=== PATIENT | male | born 2000 | race Caucasian/White ===

== ENCOUNTER 2020-10-28 12:08 | Emergency (ER) | payer MEDICAID, SELFPAY ==
--- NOTE | ~2020-10-28 | XR_ITS ---
XR ankle RT min 3V 10/28/2020 12:49 Indication: Right ankle pain after injury Procedure: 4 views right ankle Comparison: No prior studies for comparison. Findings: There are degenerative changes of the right ankle. Small loose body inferior to the fibula. No acute fracture is identified. Moderate lateral soft tissue swelling. Ankle mortise intact. No for eign bodies. Impression: 1: No acute fracture. Reviewed, dictated and finalized at location B. IATRIC THORACIC PHYSICIAN Impression: 1: No acute fracture.
[2020-10-28 12:18] VITALS: BP 159/106; PULSE 88; RESP 18; TEMP 37; O2SAT 100
--- NOTE | 2020-10-28 12:22 | PC.NURSE ---
patient brought back to ED room 18 for triage. here via wheelchair with c/o right foot pain after he slipped on the ice this am. alert. oriented. advised to remove his shoes for exam. xray ordered. mother in room.
--- NOTE | 2020-10-28 12:23 | ED.LOWEXIN ---
HPI - Extremity Injury (Lower) General Chief Complaint: Extremity Injury, Lower Stated Complaint: rolled ankle Time Seen by Provider: 10/28/20 12:17 Source: patient Mode of arrival: wheelchair Limitations: no limitations History of Present Illness HPI Narrative: This is a 20-year-old male that presents the emergency department for right ankle injury sustained just prior to arrival. Reports he was stepping out of his truck and slipped. Reports rolling the right ankle. Denies hitting his head or loss of consciousness. Reports since he has had swelling and pain in the ankle. Reports decreased range of motion due to pain. Denies other injuries, or numbness. Related Data Allergies Allergy/AdvReac Type Severity Reaction Status Date / Time No Known Allergies Allergy Mild Unverified 11/30/11 21:47 Review of Systems Review of Systems: Narrative: CONSTITUTIONAL: Denies fever MUSCULOSKELETAL: Reports joint pain, and myalgia. NEUROLOGIC: Denies numbness All systems reviewed & are unremarkable except as noted in HPI and below PMFSH Past Medical History Medical History (Updated 10/28/20 @ 13:49 by Fatou Teague PA-C) History of hypertension Social History Social History (Updated 10/28/20 @ 12:25 by Fatou Teague PA-C) Smoking status: Current every day smoker Exam Narrative: Exam Narrative: GENERAL: Well-appearing, obese, and in no acute distress. HEAD: Normocephalic, atraumatic. EYES: EOMI. EXTREMITIES: Normal range of motion, except decreased range of motion of the right ankle due to pain. Moderate edema about the right lateral malleoli, tender to palpation. Normal DP pulses. Normal sensation SKIN: Warm, dry, no rash. NEURO: No focal deficits. Alert and oriented x3. PSYCH: Normal mood and affect Course Vital Signs Vital signs: Vital Signs Temperature 98.6 F 10/28/20 12:18 Pulse Rate 88 10/28/20 12:18 Respiratory Rate 18 10/28/20 12:18 Blood Pressure 159/106 H 10/28/20 12:18 Pulse Oximetry 100 10/28/20 12:18 Temperature 98.6 F 10/28/20 12:18 Pulse Rate 88 10/28/20 12:18 Respiratory Rate 18 10/28/20 12:18 Blood Pressure 159/106 H 10/28/20 12:18 Pulse Oximetry 100 10/28/20 12:18 MDM - Extremity Injury (Lower) MDM Narrative Medical decision making narrative: Patient presents to the emergency department after ankle injury today. Right ankle x-rays without acute osseous abnormalities. Patient instructed on care of ankle sprain. He is to follow-up with primary care doctor. He was given warnings to return to the ER Imaging Data Radiologist's impression: ITS Impressions Ankle X-Ray 10/28/20 12:52 Impression: 1: No acute fracture. Critical Care Time Critical Care Time Critical Care Time: No Discharge Plan Discharge Clinical Impression: Ankle sprain and strain Patient Disposition: Home, Self-Care Condition: Stable Instructions: Ankle Sprain (ED) Additional Instructions: Return to the emergency department if you experience fever, redness and swelling of your leg, numbness, or any other symptoms that are concerning to you Wear FELIPA wrap and use crutches. No weight on the affected leg until able to bear weight without pain. Ice and elevate extremity. Pain medication as needed and directed. Follow up with primary care doctor for further care. Follow-up/Referrals: PHYSICIAN,TREE TRIMMING [employer] TECHNICIAN [Primary Care Provider] - Zacarias Ruiz MD [Physician] - 1 Week
[2020-10-28] MEDS: HYDROcodone/acetaminophen (*CRX) 5-325 MG TABLET 1 TAB PO (12:36)
--- NOTE | 2020-10-28 13:50 | PC.NURSE ---
FELIPA wrap to right foot and right ankle. patient sitting in wheelchair in room. crutches given. denies need for crutch teaching. has used several times previously. waiting for discharge orders from provider.
== END 2020-10-28 14:10 | disposition home or self-care (01) ==
PROVIDERS: Emergency Provider Emergency Medicine; Referring Provider Emergency Medicine
DX: S96.911A Strain of unspecified muscle and tendon at ankle and foot level, right foot, initial encounter (principal); S93.401A Sprain of unspecified ligament of right ankle, initial encounter; I10 Essential (primary) hypertension; X50.9XXA Other and unspecified overexertion or strenuous movements or postures, initial encounter
CPT/HCPCS: 73610; 99283; A9270

== ENCOUNTER → 2020-11-01 13:12 | Outpatient (CLI) | payer MEDICAID, SELFPAY ==
--- NOTE | ~2020-11-01 | XR_ITS ---
EXAMINATION: XR chest 2V 11/01/2020 13:31 INDICATION: Tobacco use. PROCEDURE: 2 view chest COMPARISON: 07/02/2009 FINDINGS: The lungs are clear. The cardiomediastinal silhouette is within normal limits. There are no pleural effusions. There is no pneumothorax suspected. IMPRESSION: 1: NO ACUTE CARDIOPULMONARY DISEASE. Reviewed, dictated and finalized at location B. AGE [employer] WORKER
== END ==
PROVIDERS: PCP Emergency Medicine; Visit Provider Emergency Medicine
DX: Z72.0 Tobacco use (principal)
CPT/HCPCS: 71046